=== PATIENT | female | born 1995 | race African-American/Black ===

== ENCOUNTER 2020-05-16 04:36 | Day surgery (SDC) | payer OTHER ==
[2020-05-11 13:41] VITALS: BMI 27.9
[2020-05-16] MEDS ORDERED: fentaNYL CITRATE 250 MCG/5 ML VIAL ONE (07:19)
[2020-05-16] MEDS ORDERED: PROPOFOL 20 ML ONE ×2 (07:20)
[2020-05-16] MEDS ORDERED: MIDAZOLAM HCL 2 MG/2 ML SINGLE DOSE VIAL ONE ×3 (07:20→08:01)
[2020-05-16] MEDS ORDERED: ROCURONIUM BROMIDE 50 MG/5 ML SYRINGE ONE ×2 (07:21→09:21)
[2020-05-16] MEDS ORDERED: INDOCYANINE GREEN 25 MG/10 ML VIAL IVPUSH ONE (07:27)
[2020-05-16] MEDS ORDERED: LIDOCAINE 1%/EPI 1:100000 (50 ML MULTI DOSE VIAL) ONE (07:27)
[2020-05-16] MEDS ORDERED: BUPIVACAINE HCL 100 ML ONE ×2 (07:27→08:00)
[2020-05-16] MEDS ORDERED: BUPIVACAINE LIPOSOME/PF (EXPAREL) 266 MG/20 ML VIAL ONE (08:00)
[2020-05-16] MEDS ORDERED: ceFAZolin SODIUM 1 GM VIAL IVPB ONE (09:02)
[2020-05-16] MEDS ORDERED: traMADol HCL 50 MG TABLET PO PRN (10:02)
[2020-05-16] MEDS ORDERED: ONDANSETRON 4 MG/2 ML VIAL IVPUSH PRN (10:02)
[2020-05-16] MEDS ORDERED: oxyCODONE HCL 5 MG TABLET PO PRN ×2 (10:02)
[2020-05-16] MEDS ORDERED: ACETAMINOPHEN 325 MG TABLET (FP) PO SCH (10:15)
[2020-05-16] MEDS ORDERED: LACTATED RINGERS SOLUTION 1,000 ML IV SCH (10:15)
[2020-05-16] MEDS ORDERED: NEOSTIGMINE METHYLSULFATE 0.5 MG/ML - 10 ML MDV ONE (10:52)
[2020-05-16] MEDS ORDERED: GLYCOPYRROLATE 0.2 MG/1 ML VIAL ONE (10:52)
[2020-05-16] MEDS ORDERED: ONDANSETRON 4 MG/2 ML VIAL ONE (12:48)
[2020-05-16] MEDS ORDERED: oxyCODONE HCL 5 MG TABLET ONE (12:53)
[2020-05-16 16:02] VITALS: BP 135/84; PULSE 70; TEMP 98
== END 2020-05-16 15:45 | disposition home or self-care (01) ==
LOC: JASUSAT 04:36
PROVIDERS: ATTEND Obstetrics & Gynecology
PROC: 0UB24ZZ Excision of Bilateral Ovaries, Percutaneous Endoscopic Approach (ICD-10-PCS; principal; 2020-05-16 07:30)
DX: D27.1 Benign neoplasm of left ovary (principal); D27.0 Benign neoplasm of right ovary
CPT/HCPCS: 36415; 84703; 86850; 86900; 86901; 86922; 88307-TC; 94760

== ENCOUNTER 2021-11-20 09:42 | Emergency (ER) | payer OTHER ==
[2021-11-20 10:55] VITALS: BP 115/55; PULSE 108; RESP 18; TEMP 98.1; BMI 29.8
[2021-11-20] MEDS ORDERED: KETOROLAC TROMETHAMINE 30 MG/1 ML VIAL IM ONE (11:04)
[2021-11-20] MEDS ORDERED: KETOROLAC TROMETHAMINE 30 MG/1 ML VIAL ONE (11:12)
== END 2021-11-20 12:13 | disposition home or self-care (01) ==
LOC: JER 09:42 → JERFT 09:42
PROC: 3E0233Z Introduction of Anti-inflammatory into Muscle, Percutaneous Approach (ICD-10-PCS; principal; 2021-11-20)
DX: S39.012A Strain of muscle, fascia and tendon of lower back, initial encounter (principal); V49.40XA Driver injured in collision with unspecified motor vehicles in traffic accident, initial encounter
CPT/HCPCS: 99284-25

== ENCOUNTER 2021-11-30 15:22 | Emergency (ER) | payer OTHER ==
[2021-11-30 15:35] VITALS: BP 122/76; PULSE 98; RESP 19; TEMP 98.6; BMI 29.6
== END 2021-11-30 16:25 | disposition home or self-care (01) ==
LOC: JERFT 15:22
DX: M54.41 Lumbago with sciatica, right side (principal); M54.42 Lumbago with sciatica, left side
CPT/HCPCS: 99283-25

== ENCOUNTER 2022-07-12 18:29 | Observation (INO) | payer OTHER ==
[2022-07-12 18:37] VITALS: RESP 18; BMI 32.1
[2022-07-12] MEDS ORDERED: LACTATED RINGERS SOLUTION 1000 ML INFUS.BAG IV ONE (18:59)
[2022-07-12] MEDS ORDERED: ONDANSETRON 4 MG/2 ML VIAL IVPUSH ONE (18:59)
[2022-07-12] MEDS ORDERED: ACETAMINOPHEN 1000 MG/100 ML BAG IVPB ONE (18:59)
[2022-07-12] MEDS ORDERED: ACETAMINOPHEN INJECTION 100 ML IVPB ONE (19:12)
[2022-07-12] MEDS ORDERED: ONDANSETRON 4 MG/2 ML VIAL ONE (19:12)
[2022-07-12 19:46] LABS: BASO % 0.3 % (0-2.0); EOS % 1.6 % (0-4.5); HEMATOCRIT 40.1 % (32.4-45.2); LYMPH % 7.7 % (8-40); MCH 31.2 pg (25.7-33.7); MCHC 34.8 g/dl (32.0-36.0); MEAN CELL VOLUME 89.6 fl (80-96); MONO % 5.2 % (3.8-10.2); NEUT % 85.2 % (42.8-82.8); PLATELET COUNT 192 10^3/uL (134-434); RBC 4.47 M/mm3 (3.60-5.2); RDW 14.3 % (11.6-15.6)
[2022-07-12 19:47] LABS: URINE APPEARANCE CLOUDY; URINE BILIRUBIN NEGATIVE (NEGATIVE); URINE COLOR YELLOW; URINE GLUCOSE (UA) NEGATIVE (NEGATIVE); URINE KETONE 2+ (NEGATIVE); URINE LEUK ESTERASE NEGATIVE (NEGATIVE); URINE NITRITE NEGATIVE (NEGATIVE); URINE PROTEIN TRACE (NEGATIVE); URINE UROBILINOGEN 0.2 mg/dL (0.2-1.0)
[2022-07-12 19:50] LABS: HCG,QUALITATIVE URINE Negative
[2022-07-12 20:00] LABS: POTASSIUM 3.3 mmol/L (3.5-5.1)
[2022-07-12 20:02] LABS: ALBUMIN 3.7 g/dl (3.4-5.0); MAGNESIUM 1.9 mg/dL (1.8-2.4)
[2022-07-12 20:03] LABS: BLOOD UREA NITROGEN 10.7 mg/dL (7-18)
[2022-07-12 20:05] LABS: CREATININE 0.7 mg/dL (0.55-1.3)
[2022-07-12 20:07] LABS: BILIRUBIN,TOTAL 0.8 mg/dL (0.2-1); TOT PROT 7.6 g/dl (6.4-8.2)
[2022-07-12] MEDS ORDERED: POTASSIUM CHLORIDE ORAL LIQUID 20 MEQ/15 ML PO ONE (20:17)
[2022-07-12] MEDS ORDERED: POTASSIUM CHLORIDE ORAL LIQUID 20 MEQ/15 ML ONE (20:43)
[2022-07-13] MEDS: LACTATED RINGERS SOLUTION 1,000 ML/1,000 ML INFUS.BAG IV SCH ×2 (01:05→08:53)
[2022-07-13 07:51] LABS: HEMATOCRIT 38.2 % (32.4-45.2); HEMOGLOBIN 13.1 GM/dL (10.7-15.3); MCH 30.9 pg (25.7-33.7); MCHC 34.3 g/dl (32.0-36.0); MEAN CELL VOLUME 90.1 fl (80-96); MEAN PLT VOLUME 10.3 fl (7.5-11.1); PLATELET COUNT 172 10^3/uL (134-434); RBC 4.24 M/mm3 (3.60-5.2); RDW 14.3 % (11.6-15.6); WHITE BLOOD COUNT 6.1 K/mm3 (4.0-10.0)
[2022-07-13 08:09] LABS: POTASSIUM 3.8 mmol/L (3.5-5.1)
[2022-07-13 08:13] LABS: CALCIUM 8.6 mg/dL (8.5-10.1)
[2022-07-13 08:14] LABS: ALBUMIN 3.2 g/dl (3.4-5.0); BLOOD UREA NITROGEN 7.3 mg/dL (7-18); MAGNESIUM 1.9 mg/dL (1.8-2.4)
[2022-07-13 08:16] LABS: PHOSPHOROUS 2.9 mg/dL (2.5-4.9)
[2022-07-13 08:17] LABS: CREATININE 0.7 mg/dL (0.55-1.3)
[2022-07-13 08:18] LABS: BILIRUBIN,TOTAL 0.7 mg/dL (0.2-1); TOT PROT 6.8 g/dl (6.4-8.2)
[2022-07-13] MEDS ORDERED: FLUoxetine HCL 20 MG CAPSULE PO SCH (10:00)
[2022-07-13] MEDS ORDERED: clonazePAM 0.5 MG TABLET PO SCH (10:00)
[2022-07-13] MEDS ORDERED: ENOXAPARIN NA (PORCINE) 40 MG/0.4 ML DISP.SYRIN SQ SCH (10:00)
[2022-07-13 14:32] VITALS: BP 123/66; PULSE 74; TEMP 98.9
== END 2022-07-13 15:28 | disposition home or self-care (01) ==
LOC: JER 18:29 → JERBED 21:10 → INTOOBSV 21:10 → UNDOADMOB 21:10 → J5S 07-13 00:13 → JERBED 07-13 00:13 → J5S 07-13 13:31
PROVIDERS: ADMIT Internal Medicine; ATTEND Internal Medicine
PROC: GZ63ZZZ Other Counseling (ICD-10-PCS; principal; 2022-07-13)
PROC: 3E033NZ Introduction of Analgesics, Hypnotics, Sedatives into Peripheral Vein, Percutaneous Approach (ICD-10-PCS; 2022-07-13)
PROC: 3E0337Z Introduction of Electrolytic and Water Balance Substance into Peripheral Vein, Percutaneous Approach (ICD-10-PCS; 2022-07-13)
PROC: 3E033GC Introduction of Other Therapeutic Substance into Peripheral Vein, Percutaneous Approach (ICD-10-PCS; 2022-07-13)
PROC: 3E013GC Introduction of Other Therapeutic Substance into Subcutaneous Tissue, Percutaneous Approach (ICD-10-PCS; 2022-07-13)
DX: K56.600 Partial intestinal obstruction, unspecified as to cause (principal); E87.6 Hypokalemia; E28.2 Polycystic ovarian syndrome; J45.909 Unspecified asthma, uncomplicated; F41.9 Anxiety disorder, unspecified; F32.A Depression, unspecified; F12.90 Cannabis use, unspecified, uncomplicated; E66.9 Obesity, unspecified; Z68.32 Body mass index [BMI] 32.0-32.9, adult; K76.0 Fatty (change of) liver, not elsewhere classified
CPT/HCPCS: 96372; 96374; 96375; G0447; 0241U-QW; 36415; 74019-TC-FY; 74177-TC; 76705-TC; 80053; 81003; 83690; 83735; 84100; 84703; 85025; 85027; 93005; 93010; 99285-25; G0378; Q9967

== ENCOUNTER 2023-01-16 17:32 | Emergency (ER) | payer OTHER ==
[2023-01-16 17:48] VITALS: BMI 31.4
[2023-01-16] MEDS ORDERED: SODIUM CHLORIDE 0.9% 500 ML INFUS.BAG IV ONE (20:05)
[2023-01-16] MEDS ORDERED: MAG HYDROX/AL HYDROX/SIMETH -MYLANTA- ORAL SUSPENSION PO ONE (20:05)
[2023-01-16] MEDS ORDERED: FAMOTIDINE 20 MG/50 ML IVPB 20 MG/50 ML MG IVPB ONE ×2 (20:05→20:15)
[2023-01-16] MEDS ORDERED: ACETAMINOPHEN 1000 MG/100 ML BAG IVPB ONE ×2 (20:10→20:12)
[2023-01-16] MEDS ORDERED: MAG HYDROX/AL HYDROX/SIMETH 30 ML UNIT-DOSE CUP ONE (20:14)
[2023-01-16] MEDS ORDERED: ACETAMINOPHEN INJECTION 100 ML IVPB ONE (20:17)
[2023-01-16 21:00] LABS: BASO % 0.5 % (0-2.0); HEMATOCRIT 42.1 % (32.4-45.2); HEMOGLOBIN 13.9 GM/dL (10.7-15.3); LYMPH % 31.4 % (8-40); MCH 30.1 pg (25.7-33.7); MEAN CELL VOLUME 91.2 fl (80-96); MONO % 10.6 % (3.8-10.2); NEUT % 54.5 % (42.8-82.8); RBC 4.62 M/mm3 (3.60-5.2); RDW 14.2 % (11.6-15.6)
[2023-01-16 21:28] LABS: POTASSIUM 3.7 mmol/L (3.5-5.1)
[2023-01-16 21:31] LABS: BLOOD UREA NITROGEN 11.1 mg/dL (7-18); CALCIUM 8.5 mg/dL (8.5-10.1)
[2023-01-16 21:32] LABS: ALBUMIN 3.6 g/dl (3.4-5.0)
[2023-01-16 21:34] LABS: CREATININE 0.8 mg/dL (0.55-1.3); MEAN PLT VOLUME 10.2 fl (7.5-11.1); PLATELET COUNT 198 10^3/uL (134-434)
[2023-01-16 21:36] LABS: BILIRUBIN,TOTAL 0.4 mg/dL (0.2-1); TOT PROT 7.6 g/dl (6.4-8.2)
[2023-01-16 23:18] LABS: PH,URINE 6.5 (5.0-8.0); URINE APPEARANCE CLEAR; URINE BILIRUBIN NEGATIVE (NEGATIVE); URINE COLOR YELLOW; URINE GLUCOSE (UA) NEGATIVE (NEGATIVE); URINE KETONE NEGATIVE (NEGATIVE); URINE LEUK ESTERASE NEGATIVE (NEGATIVE); URINE NITRITE NEGATIVE (NEGATIVE); URINE PROTEIN NEGATIVE (NEGATIVE); URINE UROBILINOGEN 0.2 mg/dL (0.2-1.0)
[2023-01-16 23:49] VITALS: BP 105/69; PULSE 73; RESP 16; TEMP 98.1
== END 2023-01-17 01:54 | disposition left against medical advice (07) ==
LOC: JER 17:32
PROC: 3E033GC Introduction of Other Therapeutic Substance into Peripheral Vein, Percutaneous Approach (ICD-10-PCS; principal; 2023-01-16)
PROC: 3E033NZ Introduction of Analgesics, Hypnotics, Sedatives into Peripheral Vein, Percutaneous Approach (ICD-10-PCS; 2023-01-16)
DX: R10.13 Epigastric pain (principal); N83.201 Unspecified ovarian cyst, right side; R07.89 Other chest pain; R06.02 Shortness of breath
CPT/HCPCS: 36415; 74177-TC; 76705-TC; 80053; 81003; 83690; 84484; 84703; 85025; 87086; 93005; 93010; 99285-25; Q9967